=== PATIENT | female | born 1990 | race Caucasian/White ===

== ENCOUNTER 2021-05-15 10:13 | Emergency (ER) | payer BC, OTHER ==
[~2021-05-15] VITALS: Ht 175.3 cm; Wt 59.0 kg
[2021-05-15] MEDS ORDERED: diphenhydrAMINE 50 MG/1 ML VIAL IV ONE ×2 (11:00→16:00)
[2021-05-15] MEDS ORDERED: KETOROLAC TROMETHAMINE 30 MG INJ IVP ONE ×2 (11:00→16:15)
[2021-05-15] MEDS ORDERED: METOCLOPRAMIDE HCL 10 MG/2 ML VIAL IV ONE (11:00)
[2021-05-15] MEDS ORDERED: LORAZEPAM 2 MG/1 ML VIAL IV ONE (11:00)
[2021-05-15] MEDS ORDERED: IV NORMAL SALINE 1000 ML BAG IV ONE (11:00)
[2021-05-15 11:14] LABS: HEMATOCRIT 37.4 % (31.2-41.9); MEAN CORPUSCULAR HEMOGLOBIN 30.7 uug (24.7-32.8); MEAN CORPUSCULAR VOLUME 91.7 fL (75.5-95.3); PLATELET COUNT (AUTO) 262 K/uL (179-408)
[2021-05-15] MEDS ORDERED: METOCLOPRAMIDE HCL 10 MG/2 ML VIAL ONE (11:17)
[2021-05-15] MEDS ORDERED: KETOROLAC TROMETHAMINE 30 MG INJ ONE ×2 (11:17→16:24)
[2021-05-15] MEDS ORDERED: diphenhydrAMINE 50 MG/1 ML VIAL ONE ×2 (11:17→16:24)
[2021-05-15 11:18] LABS: CARBON DIOXIDE 26 mmol/L (21-32); CHLORIDE 107 mmol/L (98-107); CREATININE 0.8 mg/dL (0.6-1.3); GLUCOSE 59 mg/dL (74-106); POTASSIUM 4.3 mmol/L (3.5-5.1); UREA NITROGEN, BLOOD 10 mg/dL (7-18)
[2021-05-15] MEDS ORDERED: LORAZEPAM 2 MG/1 ML VIAL ONE (11:18)
[2021-05-15 11:20] LABS: ETHANOL 85 MG/DL (0-0)
[2021-05-15 11:26] LABS: ACETAMINOPHEN 58.3 ug/mL (10-30); ALANINE AMINOTRANSFERASE 11 U/L (14-59); ALKALINE PHOSPHATASE 44 U/L (50-136); ASPARTATE AMINOTRANSFERASE 11 U/L (15-37); BILIRUBIN,DIRECT 0.1 mg/dL (0.0-0.2); BILIRUBIN,TOTAL 0.3 mg/dL (0.2-1.0); TOTAL PROTEIN, SERUM 7.4 g/dL (6.4-8.2)
[2021-05-15 11:32] LABS: MAGNESIUM 2.2 mg/dL (1.8-2.4); PHOSPHOROUS 3.8 mg/dL (2.5-4.9)
[2021-05-15] MEDS ORDERED: DEXTROSE 50% 50 ML DISP.SYRIN IV ONE (11:45)
[2021-05-15] MEDS ORDERED: DEXTROSE 50% 50 ML DISP.SYRIN ONE (11:52)
[2021-05-15] MEDS ORDERED: LEVE500T20 PO (12:00)
[2021-05-15] MEDS ORDERED: DIAZ10TA4 PO (12:00)
[2021-05-15] MEDS ORDERED: ALPR0.5T8 PO (12:00)
[2021-05-15] MEDS ORDERED: IV NS 1000 ML 1,000 ML IV ONE (12:30)
[2021-05-15] MEDS ORDERED: ACETYLCYSTEINE IV 0 MG in IV DEXTROSE 5% 200 ML IV ONE (12:30)
[2021-05-15] MEDS ORDERED: ACETYLCYSTEINE IV 30 ML IV ONE (12:50)
[2021-05-15] MEDS ORDERED: ACETYLCYSTEINE IV ONE ×2 (13:00→15:00)
[2021-05-15] MEDS ORDERED: DEXTROSE 5% IV ONE ×2 (13:00→15:00)
[2021-05-15] MEDS ORDERED: VALPROATE SODIUM 500 MG/5 ML VIAL IV ONE ×2 (14:15→15:09)
[2021-05-15] MEDS ORDERED: ACETYLCYSTEINE IV 0 MG in IV DEXTROSE 5% 500 ML IV ONE (14:30)
[2021-05-15 15:27] LABS: CREATININE 0.8 mg/dL (0.6-1.3); POTASSIUM 4.2 mmol/L (3.5-5.1)
[2021-05-15 15:33] LABS: BILIRUBIN,DIRECT 0.1 mg/dL (0.0-0.2); BILIRUBIN,TOTAL 0.3 mg/dL (0.2-1.0); TOTAL PROTEIN, SERUM 7.3 g/dL (6.4-8.2)
[2021-05-15] MEDS ORDERED: SUMATRIPTAN SUCCINATE 6 MG/0.5 ML VIAL SQ ONE ×2 (16:00→16:24)
[2021-05-15] MEDS ORDERED: DEXAMETHASONE SOD PHOSPHATE 4 MG INJ IV ONE (16:00)
[2021-05-15] MEDS ORDERED: PROCHLORPERAZINE EDISYLATE 10 MG/2 ML VIAL IV ONE (16:00)
[2021-05-15] MEDS ORDERED: PROCHLORPERAZINE EDISYLATE 10 MG/2 ML VIAL ONE (16:24)
[2021-05-15] MEDS ORDERED: DEXAMETHASONE SOD PHOSPHATE 10 MG INJ ONE (16:24)
[2021-05-15 17:47] LABS: ACETAMINOPHEN 21.3 ug/mL (10-30)
--- NOTE | 2021-05-15 18:30 | NUR ---
urine sample finally obtained, sent to lab.
[2021-05-15 18:38] LABS: *BILIRUBIN,URIN NEGATIVE (NEGATIVE); *BLOOD, URINE NEGATIVE (NEGATIVE); *CLARITY,URINE CLEAR (CLEAR); *COLOR,URINE YELLOW (YELLOW); *KETONES,URINE 2+ (NEGATIVE); *UROBILINOGEN,URINE 0.2 E.U./dl (NORMAL); LEUKOCYTE ESTERASE ,URINE NEGATIVE (NEGATIVE); NITRITE, URINE NEGATIVE (NEGATIVE); UGLUCOSE NEGATIVE (NEGATIVE)
[2021-05-15 18:44] LABS: *AMPHETAMINE, URINE NEGATIVE (NEGATIVE); *CANNABINOID, URINE POSITIVE (NEGATIVE); *COCCAINE, URINE NEGATIVE (NEGATIVE); *OPIATE, URINE NEGATIVE (NEGATIVE); *PHENCYCLIDINE SCREEN,URINE NEGATIVE (NEGATIVE)
[2021-05-15 19:14] LABS: ETHANOL < 3 MG/DL (0-0)
[2021-05-15 19:21] LABS: ACETAMINOPHEN 3.6 ug/mL (10-30); ALANINE AMINOTRANSFERASE 9 U/L (14-59); ALKALINE PHOSPHATASE 46 U/L (50-136); ASPARTATE AMINOTRANSFERASE 11 U/L (15-37); BILIRUBIN,DIRECT 0.1 mg/dL (0.0-0.2); BILIRUBIN,TOTAL 0.3 mg/dL (0.2-1.0); CARBON DIOXIDE 24 mmol/L (21-32); CHLORIDE 105 mmol/L (98-107); CREATININE 0.9 mg/dL (0.6-1.3); GLUCOSE 107 mg/dL (74-106); POTASSIUM 4.4 mmol/L (3.5-5.1); TOTAL PROTEIN, SERUM 7.1 g/dL (6.4-8.2); UREA NITROGEN, BLOOD 12 mg/dL (7-18)
--- NOTE | 2021-05-15 19:22 | NUR ---
Patient resting on bed, seated upright. No acute distress is noted.
[2021-05-15 19:50] VITALS: BP 120/70
--- NOTE | 2021-05-15 19:50 | NUR ---
Patient discharged to home in stable condition. Written and verbal after care instructions given. Patient verbalizes understanding of instructions. Stressed follow up or return to ER for worsening s/s. Patient ambulates with steady gait, V/S stable, IV line removed, left with all personal belongings.
== END 2021-05-15 19:50 | disposition home or self-care (01) ==
LOC: ER 10:13
DX: T39.1X1A Poisoning by 4-Aminophenol derivatives, accidental (unintentional), initial encounter (principal); R07.2 Precordial pain; Y92.89 Other specified places as the place of occurrence of the external cause; R51.9 Headache, unspecified; F13.239 Sedative, hypnotic or anxiolytic dependence with withdrawal, unspecified; F10.929 Alcohol use, unspecified with intoxication, unspecified; T42.4X5A Adverse effect of benzodiazepines, initial encounter; Y90.4 Blood alcohol level of 80-99 mg/100 ml; Z86.69 Personal history of other diseases of the nervous system and sense organs; Z79.899 Other long term (current) drug therapy; F41.9 Anxiety disorder, unspecified; D72.819 Decreased white blood cell count, unspecified; Z20.822 Contact with and (suspected) exposure to COVID-19
CPT/HCPCS: 36415; 70450; 71045; 80048 ×3; 80076 ×3; 80299 ×3; 80307; 80320 ×2; 81003; 82962; 83735; 84100; 84484 ×3; 84702; 85025; 87426; 93005; 96361; 96365; 96366; 96372; 96375; 96376; 99291; J0132 ×2; J0780; J1100; J1200 ×2; J1885 ×2; J2060; J2765; J3030; J3490 ×2; J7060 ×3; 70030-TC; G0480; J7030